=== PATIENT | female | born 1940 | race Caucasian/White ===

== ENCOUNTER 2017-03-02 08:32 | Day surgery (SDC) | payer OTHER ==
[2017-03-02] VITALS (10 sets, daily range): BP systolic 120–137; BP diastolic 54–61; PULSE 58–85; RESP 12–17; Ht 144.8 cm; Wt 49.3 kg
[~2017-03-02] VITALS: Ht 144.8 cm; Wt 49.3 kg
[~2017-03-02 08:32] MED LIST: AZIT250T94 PO; IBUP-1542 PO
[2017-03-02] MEDS ORDERED: POLYMYXIN/BACITRACIN 1L IRRIG ONE (09:49)
[2017-03-02] MEDS ORDERED: BUPIVACAINE 0.5% (SDV) 30 ML INJ ONE (09:49)
[2017-03-02] MEDS ORDERED: POVIDONE IODINE 10% 28.4 GM OINT ONE (09:49)
[2017-03-02] MEDS ORDERED: CEFAZOLIN 1 GM INJ ONE (09:56)
[2017-03-02] MEDS ORDERED: ONDANSETRON 4 MG INJ ONE (09:56)
[2017-03-02] MEDS ORDERED: FENTAnyl 50 MCG/ML VIAL ONE (09:56)
[2017-03-02] MEDS ORDERED: PROPOFOL 20 ML ONE (09:56)
[2017-03-02] MEDS ORDERED: ACETAMINOPHEN 1000MG/100ML IV 100 ML ONE (09:56)
--- NOTE | 2017-03-02 09:56 | HPN ---
Date/Time of Note Date/Time of Note DATE: 03/02/17 TIME: 09:56 Interval H&P Admission Note Pt. seen H&P reviewed: No system changes MAGAN HAMILTON DPM Mar 02, 2017 09:56
[2017-03-02] MEDS ORDERED: DEXAMETHASONE 4 MG/ML 1 ML INJ ONE (09:57)
[2017-03-02] MEDS ORDERED: FAMOTIDINE 20 MG INJ ONE (10:44)
[2017-03-02] MEDS ORDERED: ONDANSETRON 4 MG INJ IV PRN (11:00)
[2017-03-02] MEDS ORDERED: FENTAnyl 50 MCG/ML VIAL IV PRN ×2 (11:00)
[2017-03-02] MEDS ORDERED: morphine (1 MG/ML) 10ML SYRINGE IV PRN (11:00)
[2017-03-02] MEDS ORDERED: EPHEDrine SULFATE 50 MG/5 ML SYG ONE (11:03)
--- NOTE | 2017-03-02 11:14 | SIPON ---
Date/Time of Note Date/Time of Note DATE: 03/02/17 TIME: 11:10 Operative Report Preoperative Diagnosis hallux abductor valgus with bunion right foot and deformed second metatarsal phalange joint right foot Postoperative Diagnosis same Operation/Procedure Performed perez bunionectomy with epifix application and partial ostectomy second metatarsal right foot Surgeon see signature line prosthetics assistant none Anesthesia: general Estimated blood loss: minimal Transfusion Required none Specimen bone Grafts/Implants none Complications none MAGAN HAMILTON DPM Mar 02, 2017 11:14
--- NOTE | 2017-03-02 13:34 | PREOPHP ---
DATE OF ADMISSION: 03/02/2017 HISTORY OF PRESENT ILLNESS: The patient being admitted to the hospital for elective foot surgery. Palliative treatment, unsuccessful. The patient has been explained surgery and alternatives and complications and elected to have elective foot surgery. The patient is having pain in the 1st and 2nd metatarsophalangeal joint. ALLERGIES: PATIENT DENIES ANY. MEDICATIONS: Patient denies taking any medicine at present time. REVIEW OF SYSTEMS: Negative heart and lung, liver, kidney, thyroid. Negative diabetes. Negative smoke and alcohol. see any other pertinent history. PHYSICAL EXAMINATION: EXTREMITIES: Upper extremity physical exam by Dr. Edgar. Lower extremity physical exam shows a DP and PT equal regular. NEUROLOGICAL: Negative for pathology. DERMATOLOGICAL: Negative for pathology. MUSCULOSKELETAL: Shows a hallux abductovalgus with bunion deformity, right foot and deformed 2nd metatarsal phalangeal joint with hammertoe, 2nd right foot. FINAL DIAGNOSIS: Hallux abductovalgus with bunion right foot and deformed 2nd metacarpophalangeal joint. Dictated By: Reuben Duke DPM /bre/nettie /Document#: [id number]
--- NOTE | 2017-03-02 13:34 | OPR ---
DATE OF OPERATION: 03/02/2017 PREOPERATIVE DIAGNOSIS: Hallux abducto valgus (HAV) with bunion right foot, deformed second metatarsal phalangeal joint right foot. POSTOPERATIVE DIAGNOSIS: Hallux abducto valgus (HAV) with bunion right foot, deformed second metatarsal phalangeal joint right foot. SURGERY: Sanchez bunionectomy, partial ostectomy, second metatarsal, EpiFix applied on the bunion area. SURGEON: Jenny Duke DPM. OPERATIVE PROCEDURE: Patient was brought to the surgical suite, placed in the supine position. Patient was under general anesthesia. The patient had sterile prep and drape. Findings consistent with the pre and postop diagnosis. Patient had a tourniquet at the mid thigh and the first incision was a dorsal medial longitudinal incision over the first metatarsophalangeal joint. Sharp and blunt dissection the incision was carried deep. The Bovie was used as necessary. The head of the first metatarsal was freed of its attachments medially. The medial eminence was resected and remodeled. Next attention was turned to the base of the proximal phalanx, which was freed of its attachment and the proximal 25 percent of the bone was resected. The area was then cleansed. The preoperative condition having been relieved, the area had an EpiFix placed over the at the joint area and over the first metatarsal. At this point, the area was then subcutaneously coaptated using 3-0 Vicryl and the skin was coaptated using 5-0 nylon. Next, attention was turned to the second metatarsophalangeal joint where a longitudinal incision was made over the second MP joint. The head of the second metatarsal was freed of its attachment and resected at its surgical neck. The area was then cleansed and subcutaneously coaptated using 3-0 Vicryl and the skin was coaptated using 5-0 nylon. All incisions were then injected with 0.5 percent Marcaine to prolong anesthesia and a dressing of half-inch Steri-Strips, Betadine ointment, 4x4s impregnated with Betadine solution with an outer layer of Coban was applied. The patient tolerated surgery well, was returned to recovery room in satisfactory condition. There was minimum blood loss. COMPLICATIONS: None. Dictated By: Reuben Duke DPM /bre/raiza /Document#: [id number]
== END 2017-03-02 13:18 | disposition home or self-care (01) ==
LOC: SDS 08:32
PROVIDERS: ATTEND Podiatrist
DX: M20.11 Hallux valgus (acquired), right foot (principal); M21.611 Bunion of right foot; M21.961 Unspecified acquired deformity of right lower leg; Z85.038 Personal history of other malignant neoplasm of large intestine
CPT/HCPCS: 28288; 28292; 88304; 88311; J0131; J0690; J1100; J2405; J3010; Z7512; Z7610

== ENCOUNTER 2017-08-15 16:14 | Emergency (ER) | END 2017-08-16 04:00 | disposition home or self-care (01) ==